=== PATIENT | female | born 1970 | race Caucasian/White ===

== ENCOUNTER → 2017-03-17 | Outpatient (CLI) | payer OTHER ==
--- NOTE | 2017-03-18 07:28 | RAD ---
Left wrist, 3 views, 03/17/2017: History: Fall, pain No fracture or dislocation is identified. There is mild degenerative changes. There is mild soft tissue swelling. IMPRESSION: No acute bony abnormality is detected.
== END | disposition home or self-care (01) ==
LOC: RAD 17:15
PROVIDERS: ATTEND General Practice
DX: M19.032 Primary osteoarthritis, left wrist (principal)
CPT/HCPCS: 73110

== ENCOUNTER → 2017-04-13 | Outpatient (CLI) | payer OTHER ==
--- NOTE | 2017-04-13 16:09 | RAD ---
EXAM: 1. Frontal chest with 3V left rib series. 2. Left shoulder 3 views. HISTORY: Fall with left shoulder and chest pain. COMPARISON: 07/01/2016. FINDINGS: Hyperinflation is consistent with chronic obstructive pulmonary disease. There are no confluent infiltrates. There is no pneumothorax or pleural effusion. The heart is not enlarged. There are no displaced left rib fractures. No fractures are appreciated at the left shoulder. Joint spaces and alignment are maintained. IMPRESSION: 1. Chronic obstructive pulmonary disease. 2. No displaced left rib fractures. 3. No fracture or malalignment at the left shoulder.
== END | disposition home or self-care (01) ==
LOC: DXRAD 15:30
PROVIDERS: ATTEND General Practice
DX: R07.81 Pleurodynia (principal); M25.512 Pain in left shoulder; J44.9 Chronic obstructive pulmonary disease, unspecified
CPT/HCPCS: 71101; 73030

== ENCOUNTER 2020-07-14 12:49 | Emergency (ER) | payer OTHER ==
[~2020-07-14] VITALS: Ht 170.2 cm; Wt 90.1 kg
--- NOTE | 2020-07-14 13:16 | PHYS DOC ---
General Adult EDM: Chief Complaint: RIB PAIN HPI: HPI: Patient is a 50-year-old female who presents with left-sided rib pain. Patient states that she was leaning over a chair to break up a fight between her dogs when she heard a pop. Patient states that she has had left-sided rib pain since the incident occurred. Patient takes hydrocodone at home for chronic pain but states "it is not helping my pain at all". Patient states that pain is worse from sitting to standing and with deep breaths. Patient rating pain 10/10. Patient has history of neuropathy, chronic pain. Review of Systems: Review of Systems: Constitutional: Denies fever or chills Eyes: Denies change in visual acuity HENT: Denies nasal congestion or sore throat Respiratory: Denies cough or shortness of breath Cardiovascular: Denies chest pain or edema GI: Denies abdominal pain, nausea, vomiting, bloody stools or diarrhea : Denies dysuria Musculoskeletal: Denies back pain or joint pain Integument: Denies rash Neurologic: Denies headache, focal weakness or sensory changes Endocrine: Denies polyuria or polydipsia Lymphatic: Denies swollen glands Psychiatric: Denies depression or anxiety Allergies: Allergies: Allergies Coded Allergies Type Severity Reaction Last Updated Verified codeine Allergy Unknown 07/14/20 Yes Physical Exam: PE: Constitutional: Well developed, well nourished, no acute distress, non-toxic appearance. [] HENT: Normocephalic, atraumatic, bilateral external ears normal, oropharynx moist, no oral exudates, nose normal. [] Eyes: PERRLA, EOMI, conjunctiva normal, no discharge. [] Neck: Normal range of motion, no tenderness, supple, no stridor. [] Cardiovascular:Heart rate regular rhythm, no murmur [] Lungs & Thorax: Bilateral breath sounds clear to auscultation [] Abdomen: Bowel sounds normal, soft, no tenderness, no masses, no pulsatile masses. [] Skin: Warm, dry, no erythema, no rash. [] Back: No tenderness, no CVA tenderness. [] Extremities: No tenderness, no cyanosis, no clubbing, ROM intact, no edema. [] Neurologic: Alert and oriented X 3, normal motor function, normal sensory function, no focal deficits noted. [] Psychologic: Affect normal, judgement normal, mood normal. [] EKG: EKG: [] Radiology/Procedures: Radiology/Procedures: []XR CHEST 2V History: Left-sided rib pain. Comparison: Rib series 04/13/2017, chest radiograph 07/01/2016 Technique: PA and lateral chest radiographs. Findings: The lungs are adequately and symmectrically inflated. No airspace consolidation, pleural effusion or pneumothorax. The cardiomediastinal silhoutte and pulmonary vasculature are within normal limits. Soft tissues and osseous structures are unremarkable. Impression: 1. No acute cardiopulmonary process. No rib fracture or sequela identified. Electronically signed by: Master Kilgore MD (07/14/2020 1:21 PM) [facility] NDICATION: Reason: left sided abdominal pain and flank / Spl. Instructions: / History: . COMPARISON: March 2008 TECHNIQUE: Axial CT images obtained through the abdomen and pelvis without contrast. One or more of the following individualized dose reduction techniques were utilized for this examination: 1. Automated exposure control; 2. Adjustment of the mA and/or kV according to patient size; 3. Use of iterative reconstruction technique. FINDINGS: 2 mm nodule left lung base. Scattered calcific atherosclerosis. No intrahepatic bile duct dilation. No peripancreatic fluid collection. Spleen is enlarged. No hydronephrosis. Urinary bladder is thick-walled and largely decompressed. Colonic diverticulosis. Moderate stool throughout the colon. No periappendiceal inflammatory changes. No dilated loops of bowel to suggest obstruction. Small fat-containing umbilical hernia. Degenerative changes the spine mildly displaced left 10th rib fracture as well as mild angulation of the left 11th rib. There is some osseous demineralization within the pelvis. Degenerative changes of the spine with disc protrusions and osteophyte formation as well as facet hypertrophy with multilevel central canal and neural foraminal stenosis. IMPRESSION: * Thickening of the urinary bladder. Would correlate with symptoms given that cystitis or bladder wall mass could have this appearance. * There is a couple of acute appearing left lower rib fractures. Electronically signed by: Ildefonso Guan MD (07/14/2020 2:22 PM) [id number] Heart Score: Risk Factors: Risk Factors: DM, Current or recent (<one month) smoker, HTN, HLP, family history of CAD, obesity. Risk Scores: Score 0 - 3: 2.5% MACE over next 6 weeks - Discharge Home Score 4 - 6: 20.3% MACE over next 6 weeks - Admit for Clinical Observation Score 7 - 10: 72.7% MACE over next 6 weeks - Early Invasive Strategies Course & Med Decision Making: Course & Med Decision Making Pertinent Labs and Imaging studies reviewed. (See chart for details) []Patient is a 50-year-old female who presents with left-sided rib pain. Patient states that she was leaning over a chair to break up a fight between her dogs when she heard a pop. Patient states that she has had left-sided rib pain since the incident occurred. Patient takes hydrocodone at home for chronic pain but states "it is not helping my pain at all". Patient states that pain is worse from sitting to standing and with deep breaths. Patient rating pain 10/10. Patient has history of neuropathy, chronic pain. Chest x-ray ordered to rule out rib fracture. 4 mg IM morphine given. Will reassess patient's pain. Chest x-ray negative for fracture. No acute cardiopulmonary process. No rib fracture or sequela identified. CT abdomen and pelvis ordered. CBC, BMP, UA ordered. UA negative for infection. CBC, BMP negative for acute abnormalities. CT of abdomen and pelvis shows there is a couple of acute appearing left lower rib fractures. Will discharge patient home with pain medication. Will give instructions for patient to follow-up with her PCP. Edwin Disclaimer: Edwin Disclaimer: This electronic medical record was generated, in whole or in part, using a voice recognition dictation system. Departure Departure: Impression: Primary Impression: Rib fractures Qualified Codes: S22.42XA - Multiple fractures of ribs, left side, initial encounter for closed fracture Disposition: 01 DC HOME SELF CARE/HOMELESS Condition: STABLE Referrals: MAIKOL LICEA (PCP) Patient Instructions: Rib Fracture, [id number] Additional Instructions: You were seen in the emergency room today for left-sided rib pain. X-ray did show rib fractures to the left side. x-ray also showed some thickening of the urinary bladder. Follow-up with your PCP for further evaluation. Sending you home with a prescription for pain medication. May also take ibuprofen. EMERGENCY DEPARTMENT GENERAL DISCHARGE INSTRUCTIONS Thank you for coming to [facility] (ED) today and trusting us with you care. We trust that you had a positivie experience in our Emergency Department. If you wish to speak to the department management, you may call the director at [phone]. YOUR FOLLOW UP INSTRUCTIONS ARE FOLLOWS: 1. Do you have a private Doctor? If you do not have a private doctor, please ask for a resource list of physicians or clinics that may be able to assist you with follow up care. 2. The Emergency Physician has interpreted your x-rays. The X-Ray specialist will also review them. If there is a change in the findings, you will be notified in 48 hours when at all possible. 3. A lab test or culture has been done, your results will be reviewed and you will be notified if you need a change in treatment. ADDITIONAL INSTRUCTIONS AND INFORMATION: 1. Your care today has been supervised by a physician who is specially trained in emergency care. Many problems require more than one evaluation for a complete diagnosis and treatment. We recommend that you schedule your follow up appointment as recommended to ensure complete treatment of you illness or injury. If you are unable to obtain follow up care and continue to have a problem, or if your condition worsens, we recommend that you return to the ED. 2. We are not able to safely determine your condition over the phone nor are we able to give sound medical advice over the phone. For these safety reasons, if you call for medical advice we will ask you to come to the ED for further evaluation. 3. If you have any questions regarding these discharge instructions please call the ED at [phone]. SAFETY INFORMATION: In the interest of safety, wellness, and injury prevention; we encourage you to wear your sealbelt, if you smoke; quite smoking, and we encourage family to use a protective helmet for bicycling and other sporting events that present an increased risk for head injury. IF YOUR SYMPTOMS WORSEN OR NEW SYMPTOMS DEVELOP, OR YOU HAVE CONCERNS ABOUT YOUR CONDITION; OR IF YOUR CONDITION WORSENS WHILE YOU ARE WAITING FOR YOUR FOLLOW UP A PPOINTMENT; EITHER CONTACT YOUR PRIMARY CARE DOCTOR, THE PHYSICIAN WHOSE NAME AND NUMBER YOU WERE GIVEN, OR RETURN TO THE ED IMMEDIATELY. Scripts Hydrocodone Bit/Acetaminophen (HYDROCODONE-APAP 10-325 ) 1 Each Tablet 1 TAB PO PRN Q6HRS PRN for PAIN for 2 Days, #8 TAB 0 Refills Prov: MARTIN MELENDEZ APRN 07/14/20 Hydrocodone Bit/Acetaminophen (HYDROCODONE-APAP 5-325 ) 1 Each Tablet 1 TAB PO PRN Q6HRS PRN for PAIN for 3 Days, #12 TAB 0 Refills Prov: MARTIN MELENDEZ APRN 07/14/20 MARTIN MELENDEZ APRN Jul 14, 2020 13:16
--- NOTE | 2020-07-14 13:24 | RAD ---
XR CHEST 2V History: Left-sided rib pain. Comparison: Rib series 04/13/2017, chest radiograph 07/01/2016 Technique: PA and lateral chest radiographs. Findings: The lungs are adequately and symmectrically inflated. No airspace consolidation, pleural effusion or pneumothorax. The cardiomediastinal silhoutte and pulmonary vasculature are within normal limits. Sof t tissues and osseous structures are unremarkable. Impression: 1. No acute cardiopulmonary process. No rib fracture or sequela identified. Electronically signed by: Master Kilgore MD (07/14/2020 1:21 PM) [facility]
[2020-07-14] MEDS ORDERED: MORPHINE SULFATE 4 MG/ML DISP.SYRIN. IM ONE (13:30)
[2020-07-14] MEDS ORDERED: CONTRAST GIVEN. MC PRN (13:45)
[2020-07-14] MEDS ORDERED: MORPHINE SULFATE 4 MG/ML DISP.SYRIN. IV ONE ×2 (13:45→15:30)
[2020-07-14] MEDS ORDERED: IOHEXOL 300 MG/ML 75 ML VIAL. IV ONE (13:45)
[2020-07-14 14:18] LABS: BACTERIA,URINE 0 /HPF (0-FEW); BILIRUBIN,URINE NEG (NEG); CLARITY,URINE CLEAR; COLOR,URINE YELLOW; GLUCOSE,URINE NEG (NEG); NITRITE,URINE NEG (NEG); RBC,URINE 0 /HPF (0-2); SQUAMOUS EPITHELIAL CELL,UR OCC /LPF; UROBILINOGEN,URINE 0.2 mg/dL (0.2 mg/dL); WBC,URINE RARE /HPF (0-4)
[2020-07-14 14:19] LABS: BASO % 0 % (0-3); EOS # 0.1 x10^3/uL (0.0-0.7); EOS % 1 % (0-3); HEMATOCRIT 41.1 % (36.0-47.0); LYMPH # 1.2 x10^3/uL (1.0-4.8); LYMPH % 20 % (24-48); MEAN CORPUSCULAR HEMOGLOBIN 31 pg (25-35); MEAN CORPUSCULAR HGB CONC 34 g/dL (31-37); MEAN CORPUSCULAR VOLUME 92 fL (79-100); MONO # 0.8 x10^3/uL (0.0-1.1); MONO % 13 % (0-9); NEUT % 66 % (31-73); PLATELET COUNT 210 x10^3/uL (140-400); RED BLOOD COUNT 4.48 x10^6/uL (3.50-5.40); RED CELL DISTRIBUTION WIDTH 13.8 % (11.5-14.5)
--- NOTE | 2020-07-14 14:24 | RAD ---
INDICATION: Reason: left sided abdominal pain and flank / Spl. Instructions: / History: . COMPARISON: March 2008 TECHNIQUE: Axial CT images obtained through the abdomen and pelvis without contrast. One or more of the following individualized dose reduction techniques were utilized for this examinat ion: 1. Automated exposure control; 2. Adjustment of the mA and/or kV according to patient size; 3 . Use of iterative reconstruction technique. FINDINGS: 2 mm nodule left lung base. Scattered calcific atherosclerosis. No intrahepatic bile duct dilation. No peripancreatic fluid collection. Spleen is enlarged. No hydronephrosis. Urinary bladder is thick-walled and largely decompressed. Colonic diverticulosis. Moderate stool throughout the colon. No periappendiceal inflammatory changes. No dilated loops of bowel to suggest obstruction. Small fat-containing umbilical hernia. Degenerative changes the spine mildly displaced left 10th rib fracture as well as mild angulation of the left 11th rib. There is some osseous demineralization within the pelvis. Degenerative changes of the spine with disc protrusions and osteophyte formation as well as facet hyp ertrophy with multilevel central canal and neural foraminal stenosis. IMPRESSION: * Thickening of the urinary bladder. Would correlate with symptoms given that cystitis or bladder wa ll mass could have this appearance. * There is a couple of acute appearing left lower rib fractures. Electronically signed by: Ildefonso Guan MD (07/14/2020 2:22 PM) [id number]
[2020-07-14 14:29] LABS: CALCIUM 8.2 mg/dL (8.5-10.1); CREATININE 0.8 mg/dL (0.6-1.0); GFR 75.3; POTASSIUM 3.9 mmol/L (3.5-5.1)
--- NOTE | 2020-07-14 14:33 | EKG ---
[address] [address] Test Date: 2020-07-14 Test Time: 14:24:14 Pat Name: PEDRO MELENDREZ Department: Room: Gender: F Analyst [employer]: NINFA : 1970 Requested By: MARTIN MELENDEZ Order Number: [id number] Reading MD: Measurements Intervals [place] Rate: 66 P: 70 [place]: 160 QRS: 44 QRSD: 92 T: 62 QT: 410 QTc: 432 Interpretive Statements SINUS RHYTHM NORMAL ECG RI6.02 No previous ECG available for comparison
[2020-07-14] MEDS ORDERED: HYDR-2155 PO (15:12)
[2020-07-14] MEDS ORDERED: HYDR-2769 PO (15:25)
[2020-07-14 15:38] VITALS: BP 135/70
== END 2020-07-14 15:45 | disposition home or self-care (01) ==
LOC: ER 12:49
DX: S22.42XA Multiple fractures of ribs, left side, initial encounter for closed fracture (principal); Z88.5 Allergy status to narcotic agent; X50.9XXA Other and unspecified overexertion or strenuous movements or postures, initial encounter; Y93.89 Activity, other specified; Y92.89 Other specified places as the place of occurrence of the external cause; Y99.8 Other external cause status
CPT/HCPCS: 36415; 71046; 74176; 80048; 81001; 85025; 93005; 96374; 96376; 99285; J2270

== ENCOUNTER 2021-08-30 17:02 | Emergency (ER) | payer OTHER ==
[~2021-08-30] VITALS: Ht 170.2 cm; Wt 89.1 kg
[~2021-08-30 17:02] MED LIST: HYDR-2155 PO; HYDR-2769 PO
[2021-08-30 17:27] VITALS: BP 145/102
--- NOTE | 2021-08-30 17:44 | PHYS DOC ---
Past History Past Medical History: Other Additional Past Medical Histor: BLOOD DISEASE(Porphyria), NEUROPATHY, LEGALLY BLIND (NASEEM CALVIN APRN) Past Surgical History: Hysterectomy, Tubal ligation (NASEEM CALVIN APRN) Alcohol Use: None (NASEEM CALVIN APRN) General Adult EDM: Chief Complaint: SHOULDER INJURY HPI: HPI: Patient is a 51-year-old female who presents to the emergency department today for right shoulder pain that started around 2:00 this afternoon while she was sitting on her porch. Patient rates her pain 10 out of 10. She reports it is worse with movement and deep inspiration. She reports that it radiates into her neck. Patient denies any falls, injuries or strenuous activity or heavy lifting. Patient is hysterically crying and hyperventilating while in the ER room. She has a history of anxiety and reports that she has been taking her medications as directed. She denies any nausea or vomiting. Denies drug use. (NASEEM CALVIN APRN) Review of Systems: Review of Systems: Respiratory: see HPI Cardiovascular: see HPI GI: see HPI Musculoskeletal: see HPI Psychiatric: see HPI (NASEEM CALVIN APRN) Allergies: Allergies: Allergies Coded Allergies Type Severity Reaction Last Updated Verified codeine Allergy Unknown 07/14/20 Yes (NASEEM CALVIN APRN) Physical Exam: PE: Constitutional: Well developed, well nourished, no acute distress, non-toxic appearance. [] HENT: Normocephalic, atraumatic, bilateral external ears normal, oropharynx moist, no oral exudates, nose normal. [] Eyes: PERRL, EOMI, conjunctiva normal, no discharge. [] Neck: Normal range of motion, no tenderness, supple, no stridor. [] Cardiovascular:Heart rate regular rhythm, no murmur [] Lungs & Thorax: Bilateral breath sounds clear to auscultation [] Abdomen: Bowel sounds normal, soft, no tenderness, no masses, no pulsatile masses. [] Skin: Warm, dry, no erythema, no rash. [] Back: No tenderness, normal ROM Extremities: No tenderness, no cyanosis, no clubbing, ROM intact, no edema. [] right shoulder: pain with palpation to right shoulder bursa, rom intact, neuro intact, no obvious deformity, no crepitis Neurologic: Alert and oriented X 3, normal motor function, normal sensory function, no focal deficits noted. [] Psychologic: anxious and hysterical (NASEEM CALVIN APRN) Current Patient Data: Vital Signs: Vital Signs Date Time Temp Pulse Resp B/P (MAP) Pulse Ox O2 Delivery O2 Flow Rate FiO2 08/30/21 17:27 98.7 86 28 145/102 (116) 98 Room Air (NASEEM CALVIN APRN) EKG: EKG: [] (NASEEM CALVIN APRN) Radiology/Procedures: Radiology/Procedures: [] (NASEEM CALVIN APRN) Heart Score: C/O Chest Pain: No Risk Factors: Risk Factors: DM, Current or recent (<one month) smoker, HTN, HLP, family history of CAD, obesity. Risk Scores: Score 0 - 3: 2.5% MACE over next 6 weeks - Discharge Home Score 4 - 6: 20.3% MACE over next 6 weeks - Admit for Clinical Observation Score 7 - 10: 72.7% MACE over next 6 weeks - Early Invasive Strategies (NASEEM CALVIN APRN) Course & Med Decision Making: Course & Med Decision Making Pertinent Labs and Imaging studies reviewed. (See chart for details) Patient presents to the emergency department for right shoulder pain that started while sitting on her porch. The pain is worse with movement and palpation. Patient is very hysterical and hyperventilating. Patient will be evaluated for atypical chest pain with blood work including a troponin, EKG and chest x-ray. Shoulder x-ray was also performed. Patient be treated with anti- inflammatory medication. 181: ER staff informed me that patient was found attempting to exit the hospital and would like to leave AMA, she removed her own IV prior to departure. Security informed. (NASEEM CALVIN APRN) Course & Med Decision Making Did not see or evaluate patient. Did not discuss patient with [employer]. Generally agree with [employer]'s work-up and disposition per note (JAKI DAVILA MD) Edwin Disclaimer: Dragon Disclaimer: This electronic medical record was generated, in whole or in part, using a voice recognition dictation system. (NASEEM CALVIN APRN) Departure Departure: Impression: Primary Impression: Shoulder pain Qualified Codes: M25.511 - Pain in right shoulder Disposition: LEFT AGAINST MEDICAL ADVICE Condition: GUARDED Referrals: VINAYAK,MAIKOL (PCP) NASEEM CALVIN APRN Aug 30, 2021 17:44 JAKI DAVILA MD Aug 30, 2021 20:27
[2021-08-30] MEDS ORDERED: KETOROLAC 30 MG/ML VIAL. IVP ONE (17:45)
[2021-08-30 18:10] LABS: BASO % 0 % (0-3); EOS % 0 % (0-3); HEMATOCRIT 44.2 % (36.0-47.0); HEMOGLOBIN 14.8 g/dL (12.0-15.5); LYMPH # 0.6 x10^3/uL (1.0-4.8); LYMPH % 5 % (24-48); MEAN CORPUSCULAR HEMOGLOBIN 32 pg (25-35); MEAN CORPUSCULAR HGB CONC 34 g/dL (31-37); MEAN CORPUSCULAR VOLUME 96 fL (79-100); MONO # 0.7 x10^3/uL (0.0-1.1); MONO % 6 % (0-9); NEUT # 11.2 x10^3uL (1.8-7.7); NEUT % 89 % (31-73); PLATELET COUNT 187 x10^3/uL (140-400); RED BLOOD COUNT 4.59 x10^6/uL (3.50-5.40); RED CELL DISTRIBUTION WIDTH 13.6 % (11.5-14.5); WHITE BLOOD COUNT 12.6 x10^3/uL (4.0-11.0)
--- NOTE | 2021-08-30 18:22 | EKG ---
[address] [address] Test Date: 2021-08-30 Test Time: 17:43:32 Pat Name: PEDRO MELENDREZ Department: Room: Gender: F Records Management Clerk: NINFA : 1970 Requested By: NASEEM CALVIN Order Number: [id number] Reading MD: Smooth Bueno Measurements Intervals [place] Rate: 92 P: 65 [place]: 160 QRS: 0 QRSD: 94 T: 48 QT: 338 QTc: 423 Interpretive Statements SINUS RHYTHM LEFTWARD AXIS Electronically Signed On 09-04-2021 13:55:09 CDT by Smooth Bueno
[2021-08-30 18:23] LABS: CALCIUM 8.5 mg/dL (8.5-10.1); CREATININE 0.9 mg/dL (0.6-1.0); GFR 65.5; POTASSIUM 3.8 mmol/L (3.5-5.1)
[2021-08-30 18:28] LABS: ALBUMIN 3.5 g/dL (3.4-5.0); TOTAL BILIRUBIN 0.3 mg/dL (0.2-1.0); TOTAL PROTEIN 7.1 g/dL (6.4-8.2)
--- NOTE | 2021-08-30 19:48 | RAD ---
Exam: Chest one view INDICATION: Hyperventilating, right shoulder pain TECHNIQUE: Frontal view of the chest Comparisons: 07/14/2020 FINDINGS: The cardiomediastinal silhouette and pulmonary vessels are within normal limits. The lung and pleural spaces are clear. IMPRESSION: No acute cardiopulmonary process. Electronically signed by: Louis Jessica MD (08/30/2021 7:45 PM) [facility]
== END 2021-08-30 18:23 | disposition left against medical advice (07) ==
LOC: ER 17:02
DX: M25.511 Pain in right shoulder (principal); R06.4 Hyperventilation; Z88.5 Allergy status to narcotic agent
CPT/HCPCS: 36415; 71045; 80053; 82803; 84484; 85025; 93005; 96374; 99285; J1885